=== PATIENT | female | born 1960 | race Caucasian/White ===

== ENCOUNTER 2024-03-11 11:43 | Emergency (ER) | payer OTHER, SELFPAY ==
[2024-03-11 11:49] VITALS: BP 143/86; PULSE 69; RESP 16; TEMP 36.6; O2SAT 99; BMI 31.2
[2024-03-11 12:05] VITALS: BP 147/94; PULSE 69; O2SAT 97
[2024-03-11 12:06] VITALS: PULSE 79; O2SAT 98
[2024-03-11 12:10] LABS: Basophils Absolute Auto 0.05 K/uL (0.00-0.30); Basophils Percent Auto 0.9 % (0.0-3.0); Eosinophils Absolute Auto 0.26 K/uL (0.00-0.50); Eosinophils Percent Auto 4.7 % (0.0-7.0); Hematocrit 35.7 % (33.0-51.0); Hemoglobin* 11.7 gm/dL (12.0-16.0); Lymphocytes Absolute Auto 2.27 K/uL (0.90-2.90); Lymphocytes Percent Auto 40.8 % (20-44); Mean Corpuscular HGB Conc 33 gm/dL (32-36); Mean Corpuscular Hemoglobin 30 pg (26-34); Mean Corpuscular Volume 90 fL (80-100); Monocytes Percent Auto 5.7 % (0.0-11.0); Neutrophils Absolute Auto 2.67 K/uL (1.7-7.0); Neutrophils Percent Auto 47.9 % (42.0-72.0); Platelet Count* 224 K/uL (140-440); RDW Coefficient of Variation % 13.3 % (11.5-15.5); Red Blood Count 3.97 m/uL (4.00-5.20); White Blood Count* 5.57 K/uL (4.50-11.00)
[2024-03-11 12:13] LABS: Slide Review Reflex No
[2024-03-11 12:15] VITALS: PULSE 70; O2SAT 99
[2024-03-11 12:21] VITALS: BP 138/85; PULSE 66; O2SAT 98
--- NOTE | 2024-03-11 12:25 | ED_ITS ---
HPI - Chest Pain General Chief Complaint: Chest Pain Stated Complaint: Heart/chest pain Time Seen by Provider: 03/11/24 11:46 History of Present Illness HPI narrative: This 64-year-old female is employ here and comes in because of some episodes of chest discomfort that have occurred in the mid chest and left side. She states that she has had pains like this for several years. They seem to come and go at various times and are not related to exertion. Today she was sitting at a chair and began to feel some of this tightness. She states that she has had similar episodes that are rather brief and have occurred over the past few days. She reports that she did have a stress test that was negative a couple years ago. She also had an echocardiogram. Today she denies any nausea, vomiting, lightheadedness, shortness of breath, or diaphoresis. She does not have any exercise intolerance. She does not have a previous heart history. She states that she does have persistent tightness in her left upper back involving the trapezius muscle and feels like sometimes those pains radiate around into her armpit and to her left chest. Related Data Home Medications ?Medication ?Instructions ?Recorded ?Confirmed levothyroxine 125 mcg tablet 125 mcg PO DAILY 03/11/24 03/11/24 pantoprazole 40 mg tablet,delayed 40 mg PO DAILY 03/11/24 03/11/24 release sertraline 50 mg tablet 50 mg PO DAILY 03/11/24 03/11/24 Allergies Allergy/AdvReac Type Severity Reaction Status Date / Time hydromorphone [From Dilaudid] Allergy Unknown Verified 03/11/24 11:52 morphine Allergy Unknown Verified 03/11/24 11:52 Sulfa (Sulfonamide Allergy Unknown Verified 03/11/24 11:52 Antibiotics) Review of Systems Status of ROS Reports: 10 or more systems reviewed and unremarkable except as noted in History and below Narrative Constitutional: No fevers, no weight gain or loss. Eyes: No discharge. No vision changes. HENT: No congestion, no sore throat, no ear pain. Cardiovascular: No palpitations. Respiratory: No shortness of breath, no wheezes, no cough. Gastrointestinal: No abdominal pain, no vomiting, no diarrhea. Genitourinary: No dysuria, no hematuria. Musculoskeletal: Normal range of motion. Skin: No rashes, no pruritis. Neurological: No dizziness, weakness, sensory change, speech change. Endo/Heme/Allergies: No bruising or bleeding. No polydipsia. Pysch: no suicidality, no anxiety, no insomnia. All other systems reviewed and are negative. [facility] Social History Smoking Status: Never smoker How often do you have a drink containing alcohol: 2-3 times a week How often do you have six or more drinks on one occasion: Never AUDIT-C Alcohol total score: 3 Non-prescribed substance use: denies use Exam Narrative Exam Narrative: Constitutional: Well-developed, well-nourished, no acute distress. HEENT: Normocephalic, atraumatic. Neck: Normal range of motion. Nontender. Supple. Heart: Regular. No murmurs. Normal rate. Intact distal pulses. Lungs: Clear to auscultation. No wheezes, rhonchi, or rales. Abdomen: Normal bowel sounds. Nontender. No rebound tenderness. Genitalia: Deferred. Back: No midline tenderness. Normal range of motion. Extremities: Normal range of motion. No injury. Skin: Intact. No rash. Warm. No erythema or pallor. Neurologic: No altered sensation. No weakness. Alert and oriented. Psychiatric: No suicidality. No anxiety or depression. No insomnia. Nursing notes and vitals signs are reviewed. Const Vital Signs, click to edit/add: Vital Signs - 24 hr 03/11/24 11:49 03/11/24 12:05 03/11/24 12:06 Temperature 97.8 F Pulse Rate 69 79 Pulse Rate [Pulse Oximeter] 69 Respiratory Rate 16 Blood Pressure 147/94 H Blood Pressure [Left Upper Arm] 143/86 H Pulse Oximetry 99 97 98 Oxygen Delivery Method Room Air 03/11/24 12:15 03/11/24 12:21 Temperature Pulse Rate 70 66 Pulse Rate [Pulse Oximeter] Respiratory Rate Blood Pressure 138/85 Blood Pressure [Left Upper Arm] Pulse Oximetry 99 98 Oxygen Delivery Method Course Vital Signs Vital signs: Initial Vital Signs Temperature 97.8 F 03/11/24 11:49 Temperature Source Temporal Artery Scan 03/11/24 11:49 Pulse Rate 69 03/11/24 11:49 Respiratory Rate 16 03/11/24 11:49 Blood Pressure 143/86 H 03/11/24 11:49 Blood Pressure Mean 105 03/11/24 11:49 Blood Pressure Position Supine 03/11/24 11:49 Pulse Oximetry 99 03/11/24 11:49 Oxygen Delivery Method Room Air 03/11/24 11:49 Vital Signs Temperature 97.8 F 03/11/24 11:49 Pulse Rate 69 03/11/24 11:49 Respiratory Rate 16 03/11/24 11:49 Blood Pressure 143/86 H 03/11/24 11:49 Pulse Oximetry 99 03/11/24 11:49 Oxygen Delivery Method Room Air 03/11/24 11:49 Temperature 97.8 F 03/11/24 11:49 Pulse Rate 66 03/11/24 12:21 Respiratory Rate 16 03/11/24 11:49 Blood Pressure 138/85 03/11/24 12:21 Pulse Oximetry 98 03/11/24 12:21 Oxygen Delivery Method Room Air 03/11/24 11:49 MDM - Chest Pain MDM Narrative Medical decision making narrative: This patient comes in with some episodes of chest tightness as described above. She does not have any other associated symptoms except for report of muscle spasm and tightness in her left upper back that she thinks at times may be radiating around to her chest. 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 EKG done here does not show this finding. She does have a T-wave inversion in V3. Labs are acquired here in her troponin returns at 0. Complete blood count and metabolic panel also returned with reassuring findings. This patient's symptoms are not likely to be of cardio or pulmonary cause. More likely it is chest wall pain or some nerve impingement radiating from her back. She does state that she has episodes frequently where she wakes up in the night and has to straighten her arms because of tingling in her fingers. She is okay to be discharged home. I did discuss some treatment possibilities to try to help with her symptoms but she declined any of these. Lab Data Labs: Lab Results 03/11/24 03/11/24 Range/Units 12:00 12:01 WBC 5.57 (4.50-11.00) K/uL RBC 3.97 L (4.00-5.20) m/uL Hgb 11.7 L (12.0-16.0) gm/dL Hct 35.7 (33.0-51.0) % MCV 90 (80-100) fL MCH 30 (26-34) pg MCHC 33 (32-36) gm/dL RDW Coeff of Nacho 13.3 (11.5-15.5) % Plt Count 224 (140-440) K/uL Neut % (Auto) 47.9 (42.0-72.0) % Lymph % (Auto) 40.8 (20-44) % [place] % (Auto) 5.7 (0.0-11.0) % Eos % (Auto) 4.7 (0.0-7.0) % Baso % (Auto) 0.9 (0.0-3.0) % Neut # (Auto) 2.67 (1.7-7.0) K/uL Lymph # (Auto) 2.27 (0.90-2.90) K/uL [place] # (Auto) 0.30 (0.00-0.90) K/UL Eos # (Auto) 0.26 (0.00-0.50) K/uL Baso # (Auto) 0.05 (0.00-0.30) K/uL Abs Immat Gran (auto) 0.00 (0.00-0.30) K/uL Imm/Tot Granulo (auto) 0.0 % Sodium 139 (135-149) mmol/L Potassium 4.1 (3.6-5.1) mmol/L Chloride 106 (96-114) mmol/L Carbon Dioxide 24 (20-32) mmol/L Anion Gap 9 (7-15) mEq/L BUN 15 (7-30) mg/dL Creatinine 0.9 (0.5-1.5) mg/dL Estimated Creat Clear 50.37 Estimated GFR 72 ml/min Glucose 120 H (60-115) mg/dL Calcium 9.1 (8.4-10.6) mg/dL POC Troponin I 0.00 L (0.01-0.04) ng/ml ECG Data Attestation: I personally reviewed and interpreted this ECG as follows: Interpretation: Normal sinus rhythm. Rate is 66 beats per minute. There are no ST or T-wave abnormalities. Discharge Plan Discharge Clinical Impression: Atypical chest pain Patient Disposition: Home, Self-Care Condition: Stable Additional Instructions: Continue current plans. Follow up with MD and consider physical therapy. Return if worsening. Prescriptions: No Action pantoprazole 40 mg tablet,delayed release (DR/EC) 40 mg PO DAILY levothyroxine 125 mcg tablet 125 mcg PO DAILY sertraline 50 mg tablet 50 mg PO DAILY Follow Up/Referrals: Rachell Contreras MD [Primary Care Provider] - Stand Alone Forms: [employer] Info Instructions
[2024-03-11 12:28] LABS: Chloride* 106 mmol/L (96-114); Sodium* 139 mmol/L (135-149)
[2024-03-11 12:29] LABS: Potassium* 4.1 mmol/L (3.6-5.1)
[2024-03-11 12:31] LABS: Creatinine* 0.9 mg/dL (0.5-1.5); Est. Creatinine Clearance* 50.37; Estimated Glomerular Filt Rate 72 ml/min
[2024-03-11 12:32] LABS: Anion Gap 9 mEq/L (7-15); Blood Urea Nitrogen* 15 mg/dL (7-30); Calcium* 9.1 mg/dL (8.4-10.6); Carbon Dioxide* 24 mmol/L (20-32); Glucose* 120 mg/dL (60-115)
== END 2024-03-11 13:00 | disposition home or self-care (01) ==
PROVIDERS: Emergency Provider Emergency Medicine Emergency Medical Services; PCP Internal Medicine
DX: R07.9 Chest pain, unspecified (principal)
CPT/HCPCS: 36415; 80048; 84484; 85025; 93005; 99284

== ENCOUNTER 2024-07-15 09:13 | Outpatient (CLI) | payer OTHER, SELFPAY ==
--- NOTE | 2024-07-15 09:45 | CRLHL7_ITS ---
For Patients: As a result of the Cures Act, medical imaging exams and procedure reports are released immediately into your electronic medical record. You may view this report before your referring provider. If you have questions, please contact your health care provider. BILATERAL SCREENING MAMMOGRAM WITH COMPUTER-AIDED DETECTION AND TOMOSYNTHESIS TECHNIQUE: CC and MLO views were obtained. These mammographic images have been obtained using full-field digital technique. These mammographic images were interpreted with the benefit of computer-aided detection. Breast Tomosynthesis was used in this interpretation. COMPARISON FILM: 08/30/2023. Outside dated 07/05/2010. FINDINGS: There are scattered areas of fibroglandular density IMPRESSION: There is no radiographic evidence for malignancy. ASSESSMENT: BI-RADS Category 1: Negative RECOMMENDATION: Routine screening mammogram in 1 year. A lay language report of this examination will be provided to the patient. Uriel Thomas M.D. Diagnostic Radiologist [email or web address] Transcribed: 2:54 [email or web address] edmond/Dictated by: Uriel Thomas MD @ 07/22/2024 9:37:00 AM (Electronically Signed)
== END 2024-07-15 09:14 | disposition home or self-care (01) ==
LOC: MAMMO 09:13
PROVIDERS: PCP Registered Nurse; Visit Provider Registered Nurse
DX: Z12.31 Encounter for screening mammogram for malignant neoplasm of breast (principal)
CPT/HCPCS: 77063; 77067

== ENCOUNTER 2024-09-02 12:52 | Outpatient (CLI) | payer OTHER, SELFPAY | END 2024-09-02 12:53 | disposition home or self-care (01) | LOC: NFLDREF 09-05 08:16 | PROVIDERS: PCP Registered Nurse; Referring Provider Registered Nurse; Visit Provider Registered Nurse | DX: E78.5 Hyperlipidemia, unspecified (principal); E03.9 Hypothyroidism, unspecified; R73.03 Prediabetes | CPT/HCPCS: 80053; 84443 ==